=== PATIENT | male | born 1960 | race Caucasian/White ===

== ENCOUNTER → 2019-02-24 | Outpatient (CLI) | payer SELFPAY ==
--- NOTE | 2019-02-24 12:46 | PCVCIMAG ---
APPROVED REPORT Study performed: 02/24/2019 10:51:40 Exam: Stress Echocardiogram Indication: Chest pain , Hypertension Patient Location: Echo lab Stress Nurse: Vanesa Gibson RN Room #: 2 Status: routine Ht: 5 ft 10 in HR: 86 bpm BP: 120/90 mmHg Rhythm: NSR Medical History Medical History: HTN Cardiac Risk Factors: HTN Previous Cardiac Procedures: none Pretest Chest Pain Characteristics: No chest pain Exercise History: Physically active Procedure The patient underwent an Exercise Stress Test using the Mihir Protocol. Blood pressure, heart rate, and EKG were monitored. An Echocardiogram was performed by sterile instrument technician in four stages in quad fashion. At peak stress, four selected images were obtained and placed side by side with resting images for comparison. Stress Test Details Stress Test: Exercise stress testing was performed using a Mihir protocol. HR Resting HR: 86 bpmMax Heart Rate (APMHR): 162 bpm Max HR Achieved: 166 bpmTarget HR (85% APMHR): 137 bpm % of APMHR: 102 Recovery HR: 112 bpm HR response to stress: Normal HR response to stress BP Resting BP: 120/90 mmHg Max BP: 166/86 mmHg Recovery BP: 140/76 mmHg BP response to stress: Normal blood pressure response to stress. ECG Resting ECG: Sinus Rhythm Stress ECG: Sinus Rhythm ST Change: Non-ischemic Maximum ST Deviation: -0.30 mm Arrhythmia: Rare PACs Recovery ECG: Sinus Rhythm Recovery ST Change: Non-ischemic Recovery ST Deviation: 1.10 mm Recovery Arrhythmia: rare PACS Clinical Reason for Termination: Maximal effort Stress Symptoms: none Exercise duration: 12 min 17 sec Highest Stage Achieved: Stage 5: 5.0 mph at 18% grade. Exercise capacity: 14.4 METs Overall Exercise Capacity for Age: Excellent Scale: Active Angina Score: None No complications. Stress ECG Conclusion The patient exercised according to the MIHIR protocol for 12:17 mins; achieving a work level of 14.4 METS. The resting heart rate of 86 bpm giles to a maximum heart rate of 166 bpm. This value represents 102% of the maximal, age-predicted heart rate. The resting blood pressure of 120/90 mmHg, giles to a maximum blood pressure of 166/86 mmHg. The exercise test was stopped due to fatigue. Reyes Treadmill Score is 13.5 which is Low risk. Pre-Stress Echo The resting Echocardiogram showed normal left ventricular contractility with an estimated Ejection Fraction of about 55-60%. Normal wall motion in all segments on baseline images. Post-Stress Echo The stress Echocardiogram showed normal left ventricular contractility with an estimated Ejection Fraction of about 65-70%. Normal augmentation of wall motion in all segments on post stress images. Clinical No clinical or ECG evidence for ischemia. Conclusion Clinical Response: Non-ischemic Exercise Capacity: Superior Stress ECG Response: Non-ischemic Stress Echo Images: Non-ischemic No clinical, EKG or echocardiographic evidence for ischemia. No echocardiographic evidence for exercise induced ischemia. Normal stress echocardiogram with maximal exercise stress. Trace aortic insuffeciency. Ascending Ao 3.5cm. No prior study available for comparison. <Conclusion> No clinical, EKG or echocardiographic evidence for ischemia. No echocardiographic evidence for exercise induced ischemia. Normal stress echocardiogram with maximal exercise stress. Trace aortic insuffeciency. Ascending Ao 3.5cm.
== END | disposition home or self-care (01) ==
LOC: PCVCIMAG 10:31
PROVIDERS: ATTEND Internal Medicine Cardiovascular Disease
DX: I10 Essential (primary) hypertension (principal)
CPT/HCPCS: 93325; 93351